=== PATIENT | female | born 1970 | race Caucasian/White ===

== ENCOUNTER 2019-05-04 13:50 | Emergency (ER) | payer BC ==
[2019-05-04 13:57] VITALS: BP 140/68
--- NOTE | 2019-05-04 15:24 | ER Document Report ---
ED Medical Screen (RME) - General Chief Complaint: Neck Problem Stated Complaint: RIGHT SIDE NECK PAIN Time Seen by Provider: 05/04/19 15:20 Mode of Arrival: Ambulatory Information source: Patient Notes: Patient states she was playing on a trampoline a few days ago and since then she has had right lateral side neck tenderness. Patient denies any specific injury. Patient denies any fever. I have greeted and performed a rapid initial assessment of this patient. A comprehensive ED assessment and evaluation of the patient, analysis of test results and completion of the medical decision making process will be conducted by additional ED providers. TRAVEL OUTSIDE OF THE [place] IN LAST 30 DAYS: No - Related Data Allergies/Adverse Reactions: Penicillins Allergy (Verified 05/04/19 15:17) Past Medical History - Social History Chew tobacco use (# tins/day): No Frequency of alcohol use: None Drug Abuse: None Physical Exam - Vital signs Vitals: Temp Pulse Resp BP Pulse Ox 98.3 F 56 L 16 140/68 H 99 05/04/19 13:55 05/04/19 13:55 05/04/19 13:55 05/04/19 13:55 05/04/19 13:55 - General Notes: Right trapezius muscle tenderness Course - Vital Signs Vital signs: Temp Pulse Resp BP Pulse Ox 98.3 F 56 L 16 140/68 H 99 05/04/19 13:55 05/04/19 13:55 05/04/19 13:55 05/04/19 13:55 05/04/19 13:55
--- NOTE | 2019-05-04 16:04 | ER Document Report ---
HPI - HPI Time Seen by Provider: 05/04/19 15:20 Pain Level: 4 Notes: Patient is a 48-year-old female with history of anemia who presents complaining of right-sided neck and right shoulder pain over the last couple days. Patient states that the day before she was jumping on a trampoline park as well as playing very actively with her grandchildren. Patient states that twisting to the left makes her pain worse. Pain does not radiate. No recent illness. She is otherwise eating and drinking without difficulty. She is urinating normally and having normal bowel movements. Denies any headache, fever, head injury, changes in vision/speech/mentation/hearing, URI, sore throat, chest pain, palpitations, syncope, cough, shortness of breath, wheeze, dyspnea, abdominal pain, nausea/vomiting/diarrhea, urinary retention, dysuria, hematuria, loss of control of bowel or bladder, numbness/tingling, saddle anesthesia, muscle paralysis/weakness, or rash. - ROS Systems Reviewed and Negative: Yes All other systems reviewed and negative - REPRODUCTIVE Reproductive: DENIES: : Past Medical History - General Information source: Patient - Social History Smoking Status: Current Every Day Smoker Chew tobacco use (# tins/day): No Frequency of alcohol use: None Drug Abuse: None Family History: Reviewed & Not Pertinent Patient has suicidal ideation: No Patient has homicidal ideation: No Vertical Provider Document - CONSTITUTIONAL Agree With Documented VS: Yes Notes: PHYSICAL EXAMINATION: accompanied by female nurse GENERAL: Well-appearing, well-nourished and in no acute distress. A&Ox4. Answers questions appropriately. HEAD: Atraumatic, normocephalic. Non-tender. No duenas sign EYES: Pupils equal round and reactive to light, extraocular movements intact, sclera anicteric, conjunctiva are normal. No raccoon eyes/entrapment ENT: nares patent and without discharge. oropharynx clear without exudates. No tonsilar hypertrophy or erythema. Moist mucous membranes. No sinus tenderness. NECK: Normal range of motion, supple without lymphadenopathy. No rigidity. No midline tenderness. + Trigger point, muscle spasming, and reproducible tenderness to the Rt trapezius muscle. No bony tenderness. LUNGS: Breath sounds clear to auscultation bilaterally and equal. No wheezes rales or rhonchi. HEART: Regular rate and rhythm without murmurs, rubs, gallops. Musculoskeletal: Ext b/l: FROM to passive/active. Strength 5+/5. No deficits noted. No bony tenderness of extremities. Back: FROM to passive/active. Strength 5+/5. No vertebral point tenderness, stepoffs, or deformities. No other bony tenderness or ecchymosis. Extremities: No cyanosis, clubbing, or edema b/l. Peripheral pulses 2+. Capillary refill less than 2 seconds. NEUROLOGICAL: Cranial nerves grossly intact. Normal speech, normal gait. Normal sensory, motor exams. Reflexes 2+ b/l. PSYCH: Normal mood, normal affect. SKIN: Warm, Dry, normal turgor, no rashes or lesions noted. - INFECTION CONTROL TRAVEL OUTSIDE OF THE [place] IN LAST 30 DAYS: No Course - Re-evaluation Re-evalutation: 05/04/19 16:02 Patient is an afebrile, well-hydrated, 48-year-old female who presents with right trapezius muscle spasming and probable strain. Vitals are acceptable without tachycardia, tachypnea, or hypoxia. PE is otherwise unremarkable for any focal neurological deficits, neurovascular compromise, obvious tendon/leg rupture, obvious fracture/dislocation, septic joint. Patient is nontoxic- appearing and is tolerating p.o. without difficulty. Symptoms are reproducible by palpation and range of motion. No further work-up warranted. Low suspicion for any meningitis, fracture, expanding/ruptured AAA, cauda equina syndrome, epidural mass lesion/abscess, herniated disc causing severe spinal stenosis, or other systemic infection at this time. Patient is aware that this condition can change from initial presentation and that she needs monitor symptoms closely for any acute changes. Recheck with your PCM in 3 to 5 days. Consider consult with orthopedic/physical therapy. Return to the ED with any other worsening/concerning symptoms. Patient is in agreement. - Vital Signs Vital signs: Temp Pulse Resp BP Pulse Ox 98.3 F 56 L 16 140/68 H 99 05/04/19 13:55 05/04/19 13:55 05/04/19 13:55 05/04/19 13:55 05/04/19 13:55 Discharge - Discharge Clinical Impression: Trapezius muscle spasm Strain of right trapezius muscle Qualifiers: Encounter type: initial encounter Qualified Code(s): S46.811A - Strain of other muscles, fascia and tendons at shoulder and upper arm level, right arm, initial encounter Condition: Stable Disposition: HOME, SELF-CARE Instructions: Muscle Relaxers ([facility]) Additional Instructions: Rest, Ice, Compression, Elevation Tylenol/ibuprofen as needed Light stretches daily Strength exercises as able Moist heat and massage may help F/u with your PCP in 3-5 days for a recheck Consider consult(s) with Orthopedics/physical therapy for ongoing/worsening symptoms Return to the ED with any worsening symptoms and/or development of fever, headache, chest pain, palpitations, syncope, shortness of breath, trouble breathing, abdominal pain, n/v/d, muscle weakness/paralysis, numbness/tingling, swelling, redness, or other worsening symptoms that are concerning to you. Prescriptions: Ibuprofen [Motrin 800 mg Tablet] 800 mg PO Q8H PRN #15 tab PRN Reason: Methocarbamol [Robaxin 750 mg Tablet] 750 mg PO TID PRN #10 tablet PRN Reason: Forms: Elevated Blood Pressure Referrals: [facility] [Provider Group] - Follow up as needed
== END 2019-05-04 16:17 | disposition home or self-care (01) ==
LOC: ER 13:50
DX: S46.811A Strain of other muscles, fascia and tendons at shoulder and upper arm level, right arm, initial encounter (principal); M62.830 Muscle spasm of back; M54.2 Cervicalgia; M25.511 Pain in right shoulder; X58.XXXA Exposure to other specified factors, initial encounter; Y93.44 Activity, trampolining; F17.200 Nicotine dependence, unspecified, uncomplicated
CPT/HCPCS: 99283